=== PATIENT | female | born 1950 | race Caucasian/White ===

== ENCOUNTER → 2017-01-18 19:38 | Outpatient (CLI) | payer MEDICARE ==
[~2017-01-18 19:38] MED LIST: ALIGN4 MG PO; AREDS PO; ASPIRIN81 MG PO; COLACE100 MG PO; COMBIGAN OPHT DR5 ML EACH EYE; FISH OIL 1,2001 CA1 PO; FLORANEX / LACT1 TAB PO; K-TAB10 MEQ PO; MIDAMOR5 MG PO; NITROSTAT0.4 MG SL; NORVASC5 MG; OCUVITE PRESERV1 TAB PO; PROTONIX40 MG PO; SYNTHROID125 MCG PO; TAMBOCOR100 MG PO; VALIUM5 MG PO; VITAMIN C1000 MG PO; VITAMIN D2000 UNIT; VITAMIN D31000 UNI2 PO; XALATAN 0.0052.5 ML EACH EYE; ZANTAC150 MG PO
== END | disposition home or self-care (01) ==
LOC: D.LABREF 19:38
DX: E87.6 Hypokalemia (principal); L65.9 Nonscarring hair loss, unspecified

== ENCOUNTER 2017-04-11 16:26 | Inpatient (IN) | payer MEDICARE ==
[~2017-04-11] VITALS: Ht 142.2 cm; Wt 70.3 kg
--- NOTE | ~2017-04-11 | CN ---
PATIENT NAME:CHRISTEN KHAN MEDICAL RECORD: [id number] : 46 LOCATION:D[facility] ADMIT DATE: 04/11/17 ACCOUNT: [id number] CONSULTING PHYSICIAN: ARMAND BROWN MD REFERRING PHYSICIAN: RICHMOND BRAXTON DO DATE OF CONSULTATION: 04/12/2017 IDENTIFYING DATA: The patient is 66 years old and admitted to the hospital on a voluntary basis. CHIEF COMPLAINT: None. HISTORY OF PRESENT ILLNESS: The patient says she is shocked and distressed that a psychiatrist has been asked to see her. She says that she cannot in her wildest imaginations understand why. When told that she had reportedly made some statements about wanting to hurt herself, she is very dismissive, says that it is ridiculous and not true. After establishing some rapport with her and talking for a little while about casual aspects of her life, her background and her current situation, she does tell me that she is a very anabaptism person and that she did make some comments that she thinks might have been misinterpreted. She says that she is a very strong believer in God and that she is accepting that all things are in God's hands and that if He calls her or takes her life, that she is absolutely fine with it. Obviously, that is a big difference from being actively suicidal. ASSESSMENT: Adjustment disorder with mixed emotional features. PLAN: I do not view this patient is acutely dangerous and I do not think she needs psychiatric followup or inpatient care. If there is information that I am not aware of that would influence or change this evaluation, I would be happy to see her again. TRANSINT:[id number] Voice Confirmation ID: [id number] DOCUMENT ID: [id number] ARMAND BROWN MD CC: [id number] DICTATION DATE: 04/12/17 1513 [place] OPERATOR: 04/12/17 1558 DIS IN 04/13/17 [facility] [address] [id number]
[2017-04-11 17:07] LABS: BASOPHILS 0.2 % (0-2); EOSINOPHILS 1.4 % (0-7); HEMATOCRIT 45.4 % (36.0-48.0); IMMATURE GRANULOCYTES 0.4 % (0-5); LYMPHOCYTES 11.6 % (15-50); MCH 30.6 pg (26.0-34.0); MCV 92.7 fL (80.0-100.0); MEAN PLATELET VOLUME 10.5 fL (7.4-10.4); MONOCYTES 8.2 % (2-11); NEUTROPHILS 78.2 % (40-80); PLATELET COUNT 286 10x3/uL (130-400); RDW 13.7 % (11.5-14.5)
[2017-04-11 17:22] LABS: ALBUMIN 4.3 g/dL (3.4-5.0); ALKALINE PHOSPHATASE 134 U/L (46-116); ALT (SGPT) 24 U/L (10-68); BILIRUBIN - TOTAL 0.64 mg/dL (0.2-1.3); CALC OSMOLALITY 279 mosm/kg (275-300); CARBON DIOXIDE 22.9 mmol/L (21.0-32.0); CHLORIDE - SERUM 101 mmol/L (98-107); CREATININE - SERUM 0.8 mg/dL (0.6-1.3); GLUCOSE 126 mg/dL (74-106); POTASSIUM - SERUM 3.8 mmol/L (3.5-5.1); PROTEIN - SERUM 8.4 g/dL (6.4-8.2); SODIUM 138 mmol/L (136-145); UREA NITROGEN 18 mg/dL (7-18); eGFR NON AFRICAN AMERICAN 75 mL/min (90-120)
[2017-04-11 18:18] LABS: AMYLASE - SERUM 91 U/L (25-115); LIPASE 144 U/L (73-393)
[2017-04-11 18:27] LABS: TROPONIN-I < 0.017 ng/mL (0.000-0.060)
[2017-04-11 18:50] LABS: APPEARANCE CLEAR (CLEAR); BILIRUBIN NEGATIVE (NEGATIVE); COLOR STRAW (YELLOW); GLUCOSE NEGATIVE (NEGATIVE); KETONE NEGATIVE (NEGATIVE); LEUKOCYTE ESTERASE 1+ (NEGATIVE); NITRITE NEGATIVE (NEGATIVE); PROTEIN NEGATIVE (NEGATIVE); UROBILINOGEN NORMAL (NORMAL)
[2017-04-11 18:51] LABS: BACTERIA MANY /hpf (NONE SEEN); EPITHELIAL CELLS 0-5 /hpf (0-5); RED CELLS - URINE 0-5 /hpf (0-5); WHITE CELLS - URINE 0-5 /hpf (0-5)
--- NOTE | 2017-04-11 20:40 | NUR ---
RECIEVED TO ROOM 2238 VIA STRECHER FROM ER. ALERT ORIENTED WITH COMPLAINTS OF ABD PAIN. BOUEL SOUNDS PRESENT. IV INFUSING TO RIGHT AC WIHTOUT REDNESS OR EDEMA NOTED. CL IN REACH.
[2017-04-11] MEDS ORDERED: PROTONIX40 MG PO (21:45)
[2017-04-11 22:49] VITALS: BP 129/73; BMI 34.8
--- NOTE | 2017-04-12 00:30 | NUR ---
RESTING QUIETLY. NO DITRESS NOTED. CL IN REACH.
[2017-04-12 04:00] VITALS: BP 130/72
--- NOTE | 2017-04-12 05:05 | NUR ---
AWAKE WIHTOUT COMPLIANTS. REMAINS NPO. CL IN REACH.
[2017-04-12 08:14] VITALS: BP 129/72
--- NOTE | 2017-04-12 10:08 | NUR ---
SCHEDULED MEDICATIONS ADMINISTERED AT THIS TIME WITHOUT DIFFICULTY. ASSESSMENT PERFORMED PER FLOWSHEET. CALL LIGHT IN REACH. WILL CONTINUE WITH PLAN OF CARE.
--- NOTE | 2017-04-12 11:40 | NUR ---
TAKEN TO CT SCAN AT THIS TIME VIA WHEELCHAIR. FAMILY REMAINS AT BEDSIDE. WILL MONITOR PT WHEN SHE RETURNS TO ROOM 9457.
--- NOTE | 2017-04-12 11:43 | NUR ---
REMAINING SCHEDULED MEDICATIONS ADMINISTERED AT THIS TIME. FAMILY AT BEDSIDE. CALL LIGHT IN REACH, WILL CONTINUE WITH PLAN OF CARE.
[2017-04-12 11:50] VITALS: BP 130/88
--- NOTE | 2017-04-12 13:47 | NUR ---
04/12/2017 13:41 DCP: Discharge Planning Patient Name: CHRISTEN KHAN Admission Status: ER Accout number: [id number] Admission Date: 04-11-2017 : 1950 Admission Diagnosis:UNSPECIFIED INTESTINAL OBSTRUCTION Attending: TRAY Current LOS: 1 Anticipated DC Date: 04-14-2017 Planned Disposition: Home Primary Insurance: [facility] Discharge Planning Comments: CM MET WITH PT, CONNIE KHAN ( SON), AMADA ERIN ( ). TO ASSESS DISCHARGE PLANNING/NEEDS. PT AND SPOUSE CURRENTLY LIVE WITH SON ([place]). THERE IS A FLIGHT OF STAIRS WITH A RAIL. PT AND FAMILY STATES THE GOAL IS TO RETURN HOME. THEY DENIES ANY NEEDS FOR HH AT THIS PRESENT TIME AND STATES IT IS A SAFE ENVIROMENT TO RETURN TO. PLAN IS FOR HUSABND TO DRIVE PT HOME. DENIES ANY OTHER DISCHARGE PLANNING / NEEDS AT THISTIME CM WILL CONTINUE TO FOLLOW AND ASSIST NEEDED WITH DISCHARGE PLANNING/NEEDS PCP: [facility]; [address] [phone] AMADA KHAN () [phone] KELTON NIEVES RN * Is the patient Alert and Oriented? Yes 0 * How many steps to enter\exit or inside your home? FLIGHT 0 * PCP [facility] 0 * Pharmacy [facility] [address] 0 * Preadmission Environment Home with Family 0 * ADLs Independent 0 * Equipment None 0 * List name and contact numbers for known caregivers / representatives who currently or will assist patient after discharge: AMADA ERIN () [phone] CONNIE KHAN (SON) [phone] 0 * Community resources currently utilized None 0 * Additional services required to return to the preadmission environment? Yes 0 * Can the patient safely return to the preadmission environment? Yes 0 * Has this patient been hospitalized within the prior 30 days at any hospital? No
--- NOTE | 2017-04-12 13:56 | NUR ---
PRN TYLENOL ADMINISTERED FOR PAIN 03/06. DENIES FURTHER NEEDS, CALL LIGHT IN REACH. WILL CONTINUE WITH PLAN OF CARE.
--- NOTE | 2017-04-12 14:00 | NUR ---
IN AND OUT CATH PERFORMED PER ORDER FOR REPEAT UA. PT TOLERATED WITH MINIMAL COMPLAINTS OF DISCOMFORT.
[2017-04-12 14:26] VITALS: Ht 142.2 cm; Wt 70.3 kg
[2017-04-12 14:33] LABS: APPEARANCE CLEAR (CLEAR); BILIRUBIN NEGATIVE (NEGATIVE); COLOR STRAW (YELLOW); GLUCOSE NEGATIVE (NEGATIVE); KETONE NEGATIVE (NEGATIVE); LEUKOCYTE ESTERASE NEGATIVE (NEGATIVE); NITRITE NEGATIVE (NEGATIVE); PROTEIN NEGATIVE (NEGATIVE); SPECIFIC GRAVITY 1.005 (1.005-1.020); UROBILINOGEN NORMAL (NORMAL)
[2017-04-12 15:43] VITALS: BP 116/67
--- NOTE | 2017-04-12 17:30 | NUR ---
TOLERATING DINNER WITHOUT NAUSEA OR VOMITING. DENIES NEEDS AT THIS TIME. CALL LIGHT IN REACH, WILL CONTINUE WITH PLAN OF CARE.
[2017-04-12 20:00] VITALS: BP 119/71
--- NOTE | 2017-04-12 21:21 | NUR ---
awake,alert,no compliants vioced,Iv infusing to left arm wihtout redness or edema noted. cl in reach
[2017-04-13] VITALS: BP 113/68
--- NOTE | 2017-04-13 00:52 | NUR ---
EYES CLOSED. RESP EVEN AND UNLAOBORED. CL IN REACH
[2017-04-13 04:00] VITALS: BP 114/76
[2017-04-13 04:48] LABS: BASOPHILS 0.4 % (0-2); EOSINOPHILS 3.8 % (0-7); HEMATOCRIT 37.4 % (36.0-48.0); HEMOGLOBIN 12.3 g/dL (12-16); IMMATURE GRANULOCYTES 0.2 % (0-5); LYMPHOCYTES 28.2 % (15-50); MCH 30.8 pg (26.0-34.0); MCHC 32.9 g/dL (31.0-37.0); MCV 93.7 fL (80.0-100.0); MEAN PLATELET VOLUME 10.6 fL (7.4-10.4); MONOCYTES 10.8 % (2-11); NEUTROPHILS 56.6 % (40-80); RBC 3.99 10x6/uL (4.00-5.40); RDW 13.7 % (11.5-14.5)
--- NOTE | 2017-04-13 04:50 | NUR ---
PT RESTING QUIETLY, EYES CLOSED. RESP EVEN, UNLABORED. NO DISTRESS NOTED. CONTINUE NUISANCE WILDLIFE SPECIALIST'S PLAN OF CARE.
[2017-04-13 04:52] LABS: PLATELET COUNT 204 10x3/uL (130-400); WBC 4.7 10x3/uL (4.8-10.8)
[2017-04-13 05:03] LABS: ALBUMIN 3.2 g/dL (3.4-5.0); ALKALINE PHOSPHATASE 97 U/L (46-116); ALT (SGPT) 23 U/L (10-68); BILIRUBIN - TOTAL 0.71 mg/dL (0.2-1.3); CALC OSMOLALITY 285 mosm/kg (275-300); CALCIUM 8.7 mg/dL (8.5-10.1); CARBON DIOXIDE 30.4 mmol/L (21.0-32.0); CHLORIDE - SERUM 108 mmol/L (98-107); CREATININE - SERUM 0.6 mg/dL (0.6-1.3); GLUCOSE 102 mg/dL (74-106); PHOSPHOROUS 3.7 mg/dL (2.5-4.9); POTASSIUM - SERUM 3.5 mmol/L (3.5-5.1); PROTEIN - SERUM 6.9 g/dL (6.4-8.2); SODIUM 144 mmol/L (136-145); UREA NITROGEN 11 mg/dL (7-18); eGFR NON AFRICAN AMERICAN > 90 mL/min (90-120)
--- NOTE | 2017-04-13 06:19 | NUR ---
no change in assessment.cl in reach
--- NOTE | 2017-04-13 08:13 | HP ---
PATIENT: CHRISTEN KHAN MEDICAL RECORD: [id number] ACCOUNT: [id number] LOCATION:[facility] : [birth year] ADMISSION DATE: 04/11/17 HISTORY AND PHYSICAL EXAMINATION HISTORY OF PRESENT ILLNESS: A 66-year-old female presented late yesterday afternoon with complaint of abdominal pain, started yesterday morning, progressed throughout the day. The patient has a past history of bowel obstruction, multiple abdominal surgeries. She had episodes of slight diarrhea, this cleared and became just basically clear water per patient. Denies any fever or chills. SOCIAL HISTORY: , retired, nonsmoker, denies alcohol. FAMILY HISTORY: Daughter with migraines. Son with migraines. Mother with morbid obesity and heart disease. Father with morbid obesity, hypertension, heart disease, diabetes, at age 44. Brother with morbid obesity, diabetes and asthma. Maternal grandmother, CVA. Paternal grandfather CVA. PAST SURGICAL HISTORY: Benign lumpectomy breast, colonoscopy 2014, reported normal heart cath 2014, hernia repair in 2013, remote colonoscopies, breast biopsies, reported as benign. Hemicolectomy in 2008 secondary to obstruction. Knee surgery in 2005, cholecystectomy in 2004, hysterectomy in 1988. MEDICATIONS: Per med rec. ALLERGIES: REPORTED QUINOLONES, REGLAN, SULFA, TORADOL, CLONIDINE, AMANTADINE, LISINOPRIL. PAST MEDICAL HISTORY: Arrhythmias, PSVT, dyspepsia, vestibular dysfunction, stable angina, remote history of upper GI bleed. REVIEW OF SYSTEMS: CONSTITUTIONAL: No acute change in weight, decreased appetite with acute symptoms. HEENT: No cephalgia, visual changes, tinnitus, epistaxis or dysphagia. CARDIOVASCULAR: Denies chest pain or palpitations. PULMONARY: Denies hemoptysis, denies night sweats. GASTROINTESTINAL: Denies hematemesis, hematochezia or melena. Does admit the diffuse abdominal pain started left upper quadrant now more to left lower quadrant, diarrhea yesterday, this has resolved. Nausea, but no vomiting, this is improved. GENITOURINARY: Denies dysuria. Admits frequency. MUSCULOSKELETAL: No acute changes. ENDOCRINE: Denies polyuria, polydipsia, or polyphagia. PHYSICAL EXAMINATION: VITAL SIGNS: Temp 98.1, blood pressure 129/72, heart rate 72, respirations 20, O2 sats 95% room air. GENERAL: Alert, oriented, mild distress secondary to above. HEENT: Head: Normocephalic, atraumatic. Eyes: Pupils equal, round, reactive to light and accommodation. Extraocular muscles intact. Conjunctiva was not injected. Ears: Canals patent, TMs are intact. Nose: Nares patent without drainage. Throat: No erythema, no exudates. NECK: Supple. No lymphadenopathy, no JVD. HISTORY AND PHYSICAL [id number] CHRISTEN KHAN HEART: Regular rate and rhythm. No S3, S4, no rub. LUNGS: Clear to auscultation bilaterally. Breathing is nonlabored. ABDOMEN: Soft. Left lower quadrant tenderness. No rebound, no guarding. Hypoactive bowel sounds. No rebound, no guarding. EXTREMITIES: Present times 4. NEUROLOGIC: Cranial nerves II-XII grossly intact. No focal deficits. SKIN: Warm, dry. No rash. LABORATORY DATA: Urinalysis 1+ leukocyte esterase and many bacteria. CBC: White count 16,000, hemoglobin 15, hematocrit 45.4, platelets 286. Chemistry shows a sodium of 138, potassium 3.8, chloride 101, bicarbonate 22.9, BUN 18, creatinine 0.8, glucose 126. AST 25, ALT 24, alkaline phosphatase 134. Cardiac enzymes, troponin less than 0.017. Lipase 144. Cultures pending. Acute abdomen series, nonspecific bowel gas pattern, distention throughout, loops of bowel throughout the entire abdomen with multiple air fluid levels left upper quadrant, concerning for possible ileus versus early small-bowel obstruction. ASSESSMENT AND PLAN: 1. Ileus versus small-bowel obstruction. I discussed case with surgery, Dr. Goddard. We will obtain CT abdomen and pelvis with IV and oral contrast. The patient is n.p.o. 2. Urinary tract infection, will culture urine, antibiotics started through the Emergency Room, supportive care, further orders after CT results. TRANSINT:[id number] Voice Confirmation ID: [id number] DOCUMENT ID: [id number] RICHMOND BRAXTON DO at 0813 CC: [id number] DICTATION DATE: 04/12/17822 FOOD AND NUTRITION SERVICES ASSISTANT: 04/12/17921 ADM IN [facility] [address] [place] [address]
[2017-04-13 08:36] VITALS: BP 121/75
[2017-04-13 11:25] VITALS: BP 124/74
--- NOTE | 2017-04-13 11:25 | NUR ---
DISCHARGE PAPERWORK REVIEWED AT THIS TIME. IV X2 REMOVED WITH CATH TIPS INTACT. PT SIGNED RELEASE FOR DR CORDOVA'S CONSULATION NOTE. NO QUESTIONS REGARDING DISCHARGE. PT WISHED FOR BP AND HR BE CHECKED BEFORE SHE DISCHARGED. SEE FLOWSHEET. WILL D/C HOME WITH .
--- NOTE | 2017-04-13 16:41 | NUR ---
CM NOTE: PT WAS DISCHARGED HOME TODAY- DROVE PT HOME. PT REFUSED HH AND DENIES ANY OTHER NEEDS FOR DISCHARGED. KELTON NIEVES RN
--- NOTE | 2017-04-14 07:43 | DS ---
PATIENT:CHRISTEN KHAN :46 MEDICAL RECORD: [id number] DISCHARGE SUMMARY ADMISSION DATE: 04/11/17 DISCHARGE DATE: 04/13/17 DATE OF ADMISSION: 04/11/2017 DATE OF DISCHARGE: 04/13/2017 ADMISSION DIAGNOSES: Abdominal pain, ileus versus bowel obstruction, diarrhea, signs and symptoms of urinary tract infection. DISCHARGE DIAGNOSIS: Abdominal pain, resolved. CONSULTS: Dr. Goddard, general surgery. HOSPITAL COURSE: The patient was admitted to the Emergency Room with abdominal pain. Acute abdominal series showed signs of ileus versus small-bowel obstruction. The patient was admitted. CT obtained. No evidence of obstruction. Cleared by surgery for discharge. Repeat urinalysis was clear. CBC was normalized. The patient is tolerating a regular diet. She is anxious to go home. The patient is discharged in significantly improved condition. VITAL SIGNS ON DISCHARGE: Temperature 98.2, blood pressure 114/76, heart rate 63, respirations 17, and O2 sats 98% room air. LABORATORY DATA: CBC: White count 4.7, hemoglobin 12.3, hematocrit 37.4, and platelets 204. Electrolytes normal. DISCHARGE INSTRUCTIONS: The patient will follow up in the clinic in 2 weeks. Return to the Emergency Room or the clinic with resumption of symptoms. TRANSINT:[id number] Voice Confirmation ID: [id number] DOCUMENT ID: [id number] RICHMOND BRAXTON DO at 0743 CC: [id number] DICTATION DATE: 04/13/17 0819 DIRECTOR OF ACQUISITION MARKETING: 04/14/17 0102 DIS IN 04/13/17 [place] [id number] [place] [id number]
== END 2017-04-13 11:40 | disposition home or self-care (01) | DRG 392 ==
LOC: D.ER 16:26 → D.MS 20:19
PROVIDERS: Emergency Medicine; Physician Assistant; Surgery; ADMIT Family Medicine
DX: R10.9 Unspecified abdominal pain (principal); F43.29 Adjustment disorder with other symptoms

== ENCOUNTER → 2017-10-03 13:41 | Outpatient (CLI) | payer MEDICARE ==
[2017-04-12 14:26] VITALS: BMI 34.7
== END | disposition home or self-care (01) ==
LOC: D.MAMMO 08:15
DX: Z12.31 Encounter for screening mammogram for malignant neoplasm of breast (principal)

== ENCOUNTER 2017-12-02 14:33 | Emergency (ER) | payer MEDICARE ==
[2017-04-12 14:26] VITALS: BMI 34.7
[2017-12-02 15:19] LABS: BASOPHILS 0.6 % (0-2); EOSINOPHILS 3.7 % (0-7); HEMATOCRIT 42.7 % (36.0-48.0); IMMATURE GRANULOCYTES 0.5 % (0-5); LYMPHOCYTES 20.9 % (15-50); MCH 29.9 pg (26.0-34.0); MCHC 32.8 g/dL (31.0-37.0); MEAN PLATELET VOLUME 10.6 fL (7.4-10.4); MONOCYTES 7.7 % (2-11); NEUTROPHILS 66.6 % (40-80); PLATELET COUNT 239 10x3/uL (130-400); RBC 4.69 10x6/uL (4.00-5.40); RDW 13.8 % (11.5-14.5); WBC 8.6 10x3/uL (4.8-10.8)
[2017-12-02 16:12] LABS: APPEARANCE CLEAR (CLEAR); BILIRUBIN NEGATIVE (NEGATIVE); COLOR YELLOW (YELLOW); GLUCOSE NEGATIVE (NEGATIVE); KETONE NEGATIVE (NEGATIVE); NITRITE NEGATIVE (NEGATIVE); PROTEIN NEGATIVE (NEGATIVE); UROBILINOGEN NORMAL (NORMAL)
[2017-12-02 16:50] LABS: ALBUMIN 3.9 g/dL (3.4-5.0); ALKALINE PHOSPHATASE 138 U/L (46-116); ALT (SGPT) 20 U/L (10-68); CALC OSMOLALITY 284 mosm/kg (275-300); CARBON DIOXIDE 27.4 mmol/L (21.0-32.0); CHLORIDE - SERUM 104 mmol/L (98-107); CREATININE - SERUM 0.8 mg/dL (0.6-1.3); GLUCOSE 110 mg/dL (74-106); PROTEIN - SERUM 7.7 g/dL (6.4-8.2); SODIUM 142 mmol/L (136-145); UREA NITROGEN 16 mg/dL (7-18); eGFR NON AFRICAN AMERICAN 75 mL/min (90-120)
[2017-12-02 16:57] LABS: CHOL - HDL RATIO 2.9 ratio (2.3-4.1); CHOLESTEROL, TOTAL 170 mg/dL (0-200); CKMB 1.5 U/L (0.0-3.6); CREATINE KINASE 106 UL (21-215); HDL CHOLESTEROL 59 mg/dL (32-96); LDL CHOLESTEROL 78 mg/dL (0-100); LDL-HDL RATIO 1.3 ratio (1.5-3.5); TRIGLYCERIDE 166 mg/dL (30-200); TROPONIN-I < 0.017 ng/mL (0.000-0.060)
== END 2017-12-02 17:50 | disposition home or self-care (01) ==
LOC: D.ER 14:33
PROVIDERS: Emergency Medicine
DX: R07.9 Chest pain, unspecified (principal); R07.89 Other chest pain; I10 Essential (primary) hypertension; I44.0 Atrioventricular block, first degree

== ENCOUNTER → 2018-10-09 19:36 | Outpatient (CLI) | payer MEDICARE ==
[2017-04-12 14:26] VITALS: BMI 34.7
== END | disposition home or self-care (01) ==
LOC: D.MAMMO 08:00
DX: Z12.31 Encounter for screening mammogram for malignant neoplasm of breast (principal)

== ENCOUNTER 2018-10-29 08:00 | Outpatient (CLI) | payer MEDICARE ==
[2017-04-12 14:26] VITALS: BMI 34.7
== END 2018-10-29 09:00 | disposition home or self-care (01) ==
LOC: D.MAMMO 08:00
DX: R92.8 Other abnormal and inconclusive findings on diagnostic imaging of breast (principal)

== ENCOUNTER 2019-01-15 09:02 | Emergency (ER) | payer MEDICARE ==
[~2019-01-15] VITALS: Ht 142.2 cm; Wt 90.9 kg
[2019-01-15 09:20] VITALS: Ht 142.2 cm; Wt 90.9 kg
[2019-01-15 10:00] LABS: BASOPHILS 0.2 % (0-2); EOSINOPHILS 0.2 % (0-7); HEMATOCRIT 43.6 % (36.0-48.0); IMMATURE GRANULOCYTES 0.2 % (0-5); LYMPHOCYTES 4.8 % (15-50); MCH 28.8 pg (26.0-34.0); MCHC 32.1 g/dL (31.0-37.0); MCV 89.7 fL (80.0-100.0); MEAN PLATELET VOLUME 10.3 fL (7.4-10.4); MONOCYTES 3.8 % (2-11); NEUTROPHILS 90.8 % (40-80); PLATELET COUNT 302 10x3/uL (130-400); RBC 4.86 10x6/uL (4.00-5.40); RDW 14.4 % (11.5-14.5); WBC 12.7 10x3/uL (4.8-10.8)
[2019-01-15 10:16] LABS: ALBUMIN 3.9 g/dL (3.4-5.0); ANION GAP 12.9 mmol/L (8-16); BILIRUBIN - TOTAL 0.45 mg/dL (0.2-1.3); CALCIUM 9.7 mg/dL (8.5-10.1); CARBON DIOXIDE 30.9 mmol/L (21.0-32.0); CREATININE - SERUM 0.9 mg/dL (0.6-1.3); POTASSIUM - SERUM 3.8 mmol/L (3.5-5.1)
[2019-01-15 12:36] LABS: APPEARANCE HAZY (CLEAR); BILIRUBIN NEGATIVE (NEGATIVE); COLOR YELLOW (YELLOW); GLUCOSE NEGATIVE (NEGATIVE); KETONE NEGATIVE (NEGATIVE); NITRITE NEGATIVE (NEGATIVE); PROTEIN NEGATIVE (NEGATIVE); UROBILINOGEN NORMAL (NORMAL)
[2019-01-15] MEDS ORDERED: ZOFRAN ODT4 MG/UDTAB PO (13:53)
[2019-01-15 14:20] VITALS: BP 129/80
--- NOTE | 2019-01-22 11:18 | EC ---
PATIENT:CHRISTEN KHAN DATE OF SERVICE: 01/15/19 SEX: F MEDICAL RECORD: [id number] DATE OF : [birth year] LOCATION:D.ER AGE OF PATIENT: 68 ADMISSION DATE: 01/15/19 REFERRING PHYSICIAN: INTERPRETING PHYSICIAN: ARCELIA CALERO MD ECHOCARDIOGRAM REPORT ECHO CHARGES 4 ECHO COMPLETE Date: 01/15/19 CLINICAL DIAGNOSIS: STARTING CHEMO, ASSESS EF, RECENT NAUSEA AND VOMITING ECHOCARDIOGRAPHIC MEASUREMENTS (adult normal given) AC root (d.<3.7cm) 4.2 cm LV Septum d (<1.2 cm> 1.4 cm Valve Excursion 1.5 cm LV Septum (systole) 1.5 cm Left Atria (s.<4.0cm> 3.2 cm LVPW d(<1.2cm) 1.4 cm RV (d.<2.3cm) 3.3 cm LVPW (sytole) 1.5 cm LV diastole(<5.6CM) 3.5 cm MV E-F(>70mm/sec) cm LV systole 2.5 cm LVOT Diameter 2.0 cm MV exc.(>10mm) 1.4 cm Est.ejection fraction (50-75%) % DOPPLER: LVIT cm/sec A 106 cm/sec E 38.0 cm/sec LA cm/sec RVSP 18 mmHg LVOT 89 cm/sec AOP1/2T m/s Asc. Ao 138 cm/sec RVOT 86 cm/sec RA cm/sec PA 40 cm/sec AV Gradient Peak 7.60 mmHg AV Mean 3.77 mmHg AV Area 2.0 cm MV Gradient Peak 9.67 mmHg MV Mean 3.82 mmHg MV Area cm COMMENTS: Automotive Parts Advisor: Pat HAMLIN Retail Special Event Associate: 1 Dr. Calero TAPE# PACS Pericardial Effusion N DATE OF SERVICE: 01/15/2019 PROCEDURE: 1. Left ventricular chamber size is within normal limits. Left ventricular systolic function is normal. Overall ejection fraction estimated at 65%. 2. Left atrium, right atrium, and right ventricular chamber sizes are within normal limits. 3. Valvular structures have normal structure and motion. 4. Doppler interrogation only reveals trace tricuspid regurgitation. No other valvular insufficiency or stenosis and pulmonary systolic pressure is normal ECHOCARDIOGRAM REPORT [id number] CHRISTEN KHAN estimated at 18 mmHg. 5. No evidence of pericardial effusion or left ventricular thrombus. TRANSINT:[id number] Voice Confirmation ID: [id number] DOCUMENT ID: [id number] ARCELIA CALERO MD at 1118 CC: AURELIO GARCIA MD [id number] DICTATION DATE: 01/15/19 1435 DUMPING MACHINE OPERATOR: 01/15/19 1542 DEP ER 01/15/19 [place] [id number] [place] [id number]
== END 2019-01-15 14:20 | disposition home or self-care (01) ==
LOC: D.ER 09:02
PROVIDERS: Emergency Medicine
DX: R11.2 Nausea with vomiting, unspecified (principal); A08.4 Viral intestinal infection, unspecified

== ENCOUNTER 2019-05-13 08:00 | Outpatient (CLI) | payer MEDICARE ==
[2019-01-15 09:20] VITALS: BMI 44.9
[~2019-05-13 08:00] MED LIST changes: +ZOFRAN ODT4 MG/UDTAB PO
== END 2019-05-13 23:59 | disposition home or self-care (01) ==
LOC: D.MAMMO 08:00
PROVIDERS: ATTEND Surgery
DX: Z85.3 Personal history of malignant neoplasm of breast (principal)

== ENCOUNTER → 2019-06-20 13:22 | Outpatient (CLI) | payer MEDICARE ==
[2019-01-15 09:20] VITALS: BMI 44.9
--- NOTE | 2019-06-21 14:45 | EC ---
PATIENT:CHRISTEN KHAN DATE OF SERVICE: 06/20/19 SEX: F MEDICAL RECORD: [id number] DATE OF : [birth year] [facility]: 68 ADMISSION DATE: 06/20/19 REFERRING PHYSICIAN: INTERPRETING PHYSICIAN: ARCELIA CALERO MD ECHOCARDIOGRAM REPORT ECHO CHARGES 4 ECHO COMPLETE Date: 06/20/19 CLINICAL DIAGNOSIS: BREAST CANCER/CHEMOTHERAPY H/O SVT/HTN ECHOCARDIOGRAPHIC MEASUREMENTS (adult normal given) AC root (d.<3.7cm) 3.8 cm LV Septum d (<1.2 cm> 1.2 cm Valve Excursion 1.9 cm LV Septum (systole) 1.9 cm Left Atria (s.<4.0cm> 4.2 cm LVPW d(<1.2cm) 1.4 cm RV (d.<2.3cm) 2.5 cm LVPW (sytole) 1.9 cm LV diastole(<5.6CM) 5.6 cm MV E-F(>70mm/sec) cm LV systole 2.9 cm LVOT Diameter 1.8 cm MV exc.(>10mm) cm Est.ejection fraction (50-75%) % DOPPLER: LVIT cm/sec A 76.0 cm/sec E 92.0 cm/sec LA cm/sec RVSP 45.0 mmHg LVOT 130 cm/sec AOP1/2T m/s Asc. Ao 146 cm/sec RVOT 49.0 cm/sec RA cm/sec PA 130 cm/sec AV Gradient Peak 8.6 mmHg AV Mean 4.3 mmHg AV Area 2.2 cm MV Gradient Peak 5.6 mmHg MV Mean 2.2 mmHg MV Area cm COMMENTS: OP - HC Honing Machine Operator Semiautomatic: Gurwinder DOUGLASOE Stain Maker: [address] Dr. Calero TAPE# PACS Pericardial Effusion N DATE OF SERVICE: 06/20/2019 PROCEDURE: Echocardiogram. FINDINGS: 1. Left ventricular chamber size is upper limits of normal with left ventricular systolic function is preserved at 55%. 2. Left atrium is enlarged at 4.2 cm. Right atrium and right ventricular chamber sizes are mildly dilated. 3. Valvular structures have normal structure and motion. ECHOCARDIOGRAM REPORT [id number] CHRISTEN KHAN 4. Doppler interrogation reveals mild mitral regurgitation, moderate tricuspid regurgitation. No other valvular insufficiency or stenosis and pulmonary systolic pressure is estimated at 45 mmHg. 5. No evidence of pericardial effusion or left ventricular thrombus. TRANSINT:[id number] Voice Confirmation ID: [id number] DOCUMENT ID: [id number] ARCELIA CALERO MD at 1445 CC: [id number] DICTATION DATE: 06/21/19 1113 HEALTH RECORD TECHNICIAN: 06/21/19 1305 DEP CLI 06/20/19 [place] [id number] [place] [id number]
== END | disposition home or self-care (01) ==
LOC: D.HCCARDIO 13:22
PROVIDERS: ATTEND Internal Medicine Interventional Cardiology
DX: I10 Essential (primary) hypertension (principal); I47.1 Supraventricular tachycardia; Z08 Encounter for follow-up examination after completed treatment for malignant neoplasm

== ENCOUNTER → 2019-09-04 08:50 | Outpatient (CLI) | payer MEDICARE ==
[2019-01-15 09:20] VITALS: BMI 44.9
--- NOTE | 2019-09-09 11:10 | EC ---
PATIENT:CHRISTEN KHAN DATE OF SERVICE: 09/04/19 SEX: F MEDICAL RECORD: [id number] DATE OF : [birth year] [facility] AGE OF PATIENT: 68 ADMISSION DATE: 09/04/19 REFERRING PHYSICIAN: INTERPRETING PHYSICIAN: ARCELIA CALERO MD ECHOCARDIOGRAM REPORT ECHO CHARGES 4 ECHO COMPLETE Date: 09/04/19 CLINICAL DIAGNOSIS: CHEMOTHERAPY ECHOCARDIOGRAPHIC MEASUREMENTS (adult normal given) AC root (d.<3.7cm) 3.9 cm LV Septum d (<1.2 cm> 1.1 cm Valve Excursion 2.2 cm LV Septum (systole) 1.7 cm Left Atria (s.<4.0cm> 3.8 cm LVPW d(<1.2cm) 1.0 cm RV (d.<2.3cm) 2.3 cm LVPW (sytole) 1.5 cm LV diastole(<5.6CM) 5.7 cm MV E-F(>70mm/sec) cm LV systole 3.4 cm LVOT Diameter 1.9 cm MV exc.(>10mm) cm Est.ejection fraction (50-75%) % DOPPLER: LVIT cm/sec A 97.0 cm/sec E 130 cm/sec LA cm/sec RVSP 43.4 mmHg LVOT 114 cm/sec AOP1/2T m/s Asc. Ao 130 cm/sec RVOT 44.0 cm/sec RA cm/sec PA 117 cm/sec AV Gradient Peak 6.8 mmHg AV Mean 3.4 mmHg AV Area 2.7 cm MV Gradient Peak 7.0 mmHg MV Mean 2.5 mmHg MV Area cm COMMENTS: Neurodiagnostic Technician: 1 VIANNEY CHEWDSOE Hydrotel Operator: 1 Dr. Calero TAPE# PACS Pericardial Effusion N DATE OF SERVICE: PROCEDURE: Echocardiogram. FINDINGS: 1. Left ventricular chamber size is mildly dilated. Left ventricular systolic function is preserved at 55% to 60%. 2. The left atrium is normal at 3.8 cm. Right atrium and right ventricular chamber sizes are mildly dilated. 3. Valvular structures have normal structure and motion. ECHOCARDIOGRAM REPORT [id number] CHRISTEN KHAN 4. Doppler interrogation reveals mild mitral regurgitation, mild tricuspid regurgitation, no other valvular insufficiency or stenosis. Pulmonary systolic pressure is estimated 44 mmHg. 5. No evidence of pericardial effusion or left ventricular thrombus. TRANSINT:[id number] Voice Confirmation ID: [id number] DOCUMENT ID: [id number] ARCELIA CALERO MD at 1110 CC: [id number] DICTATION DATE: 09/05/19 1348 DOUGH SHEETER: 09/05/19 1410 DEP CLI 09/04/19 [place] [id number] [place] [id number]
== END | disposition home or self-care (01) ==
LOC: D.ECHO 08:50
PROVIDERS: ATTEND Internal Medicine Medical Oncology
DX: C50.111 Malignant neoplasm of central portion of right female breast (principal)

== ENCOUNTER → 2019-11-15 09:00 | Outpatient (CLI) | payer MEDICARE ==
[2019-01-15 09:20] VITALS: BMI 44.9
== END | disposition home or self-care (01) ==
LOC: D.MAMMO 09:00
PROVIDERS: ATTEND Surgery
DX: Z12.31 Encounter for screening mammogram for malignant neoplasm of breast (principal); Z85.3 Personal history of malignant neoplasm of breast

== ENCOUNTER → 2019-12-06 09:58 | Outpatient (CLI) | payer MEDICARE ==
[2019-01-15 09:20] VITALS: BMI 44.9
--- NOTE | ~2019-12-06 | EC ---
PATIENT:CHRISTEN KHAN DATE OF SERVICE: 12/06/19 SEX: F MEDICAL RECORD: [id number] DATE OF : 46 LOCATION:D[facility] AGE OF PATIENT: 69 ADMISSION DATE: 12/06/19 REFERRING PHYSICIAN: INTERPRETING PHYSICIAN: ARCELIA CALERO MD ECHOCARDIOGRAM REPORT ECHO CHARGES 4 ECHO COMPLETE Date: 12/06/19 CLINICAL DIAGNOSIS: CHEMO, ASSESS EF ECHOCARDIOGRAPHIC MEASUREMENTS (adult normal given) AC root (d.<3.7cm) 3.3 cm LV Septum d (<1.2 cm> 0.9 cm Valve Excursion 1.6 cm LV Septum (systole) 1.1 cm Left Atria (s.<4.0cm> 3.6 cm LVPW d(<1.2cm) 1.0 cm RV (d.<2.3cm) 3.0 cm LVPW (sytole) 1.1 cm LV diastole(<5.6CM) 5.5 cm MV E-F(>70mm/sec) cm LV systole 4.0 cm LVOT Diameter 2.3 cm MV exc.(>10mm) cm Est.ejection fraction (50-75%) % DOPPLER: LVIT cm/sec A 77 cm/sec E 107 cm/sec LA cm/sec RVSP 49.4 mmHg LVOT 108 cm/sec AOP1/2T m/s Asc. Ao 125 cm/sec RVOT 79 cm/sec RA cm/sec PA 93 cm/sec AV Gradient Peak 6.3 mmHg AV Mean 3.9 mmHg AV Area 4.2 cm MV Gradient Peak 6.0 mmHg MV Mean 3.3 mmHg MV Area cm COMMENTS: Spot Worker: Tra VENTURA Director Of Enterprise Architecture: 1 Dr. Calero TAPE# PACS Pericardial Effusion N DATE OF SERVICE: 12/06/2019 Echocardiogram FINDINGS: 1. Left ventricular chamber size is within normal limits. Left ventricular systolic function is normal. Overall ejection fraction estimated at 55%. 2. Left atrium, right atrium, and right ventricular chamber sizes are mildly dilated. 3. Valvular structures have normal structure and motion. ECHOCARDIOGRAM REPORT [id number] CHRISTEN KHAN 4. Doppler interrogation reveals trace mitral regurgitation, mild tricuspid regurgitation, no other valvular insufficiency or stenosis. 5. No evidence of pericardial effusion or left ventricular thrombus. TRANSINT:[id number] Voice Confirmation ID: [id number] DOCUMENT ID: [id number] ARCELIA CALERO MD CC: [id number] DICTATION DATE: 12/06/19 1306 FLOOR LAYER HELPER: 12/06/19 193 [facility] [address] [place] [id number]
== END | disposition home or self-care (01) ==
LOC: D.ECHO 09:58
PROVIDERS: ATTEND Internal Medicine Medical Oncology
DX: C50.111 Malignant neoplasm of central portion of right female breast (principal); D50.9 Iron deficiency anemia, unspecified; Z51.11 Encounter for antineoplastic chemotherapy

== ENCOUNTER 2020-05-18 19:00 | Outpatient (CLI) | payer MEDICARE ==
[2019-01-15 09:20] VITALS: BMI 44.9
== END 2020-05-18 23:59 | disposition home or self-care (01) ==
LOC: D.MAMMO 19:00
PROVIDERS: ATTEND Surgery
DX: Z85.3 Personal history of malignant neoplasm of breast (principal)